=== PATIENT | male | born 1945 | race Caucasian/White ===

== ENCOUNTER → 2018-02-20 | Outpatient (CLI) | payer OTHER ==
[~2018-02-20] MED LIST: LOVA10TA3 PO; NXM/40 PO
[2018-02-20 13:21] LABS: BASO % 1.3 %; BASO ABS # 0.06 K/uL (0-0.2); EOS % 4.6 %; EOS ABS # 0.21 K/uL (0-0.5); HEMATOCRIT 42.8 % (42-52); HEMOGLOBIN 13.9 g/dL (14.0-18.0); IG# 0.01 K/uL (0.00-0.02); LYMPH % 38.1 %; LYMPH ABS # 1.74 K/uL (1.2-3.4); MEAN CELL VOLUME 90.7 fL (80-100); MEAN CORPUSCULAR HEMOGLOBIN 29.4 pg (25-34); MEAN CORPUSCULAR HGB CONC 32.5 g/dl (32-36); MEAN PLATELET VOLUME 13.7 fL (7.4-10.4); MONO % 8.3 %; MONO ABS # 0.38 K/uL (0.11-0.59); NEUT % 47.5 %; NEUT ABS # 2.17 K/uL (1.4-6.5); PLATELET COUNT 218 K/uL (130-400); RED CELL DISTRIBUTION WIDTH CV 13.3 % (11.5-14.5); RED CELL DISTRIBUTION WIDTH SD 44.1 fL (36.4-46.3); WHITE BLOOD COUNT 4.57 K/uL (4.8-10.8)
[2018-02-20 13:35] LABS: PTT PATIENT 26.6 SECONDS (21.0-31.0)
[2018-02-20 13:53] LABS: BLOOD UREA NITROGEN 21 mg/dl (7-18); CALCIUM 8.7 mg/dl (8.5-10.1); CARBON DIOXIDE 29 mmol/L (21-32); CREATININE 1.14 mg/dl (0.60-1.40); GLUCOSE 91 mg/dl (70-99); POTASSIUM 4.1 mmol/L (3.5-5.1); SODIUM 142 mmol/L (136-145)
== END | disposition home or self-care (01) ==
LOC: C.LABMFLN 08:58
PROVIDERS: ATTEND Physician Assistant
DX: R05 Cough (principal)